=== PATIENT | female | born 1965 | race African-American/Black ===

== ENCOUNTER 2018-01-08 10:28 | Emergency (ER) | payer OTHER, MEDICAID ==
[~2018-01-08] VITALS: Ht 160 cm; Wt 89.0 kg
[2018-01-08] MEDS ORDERED: ACETAMINOPHEN 325MG TABLET PO ONE (11:00)
[2018-01-08 12:03] LABS: HEMATOCRIT. 39.9 % (36.0-48.0); HEMOGLOBIN. 13.7 g/dL (12.0-16.0); MEAN CORPUSCULAR HEMOGLOBIN 34.3 pg (28.0-32.0); MEAN PLATELET VOLUME 7.7 fl (7.4-10.4); PLATELET 259 x1000/uL (130-400); RED BLOOD CELL COUNT 3.99 mill/uL (4.2-5.4)
[2018-01-08 12:09] LABS: CHLORIDE 100 mEq/L (98-107)
[2018-01-08 12:11] LABS: PROTHROMBIN TIME 10.5 sec (9.4-11.6)
[2018-01-08 12:42] LABS: PLATELET ESTIMATE NORMAL
[2018-01-08] MEDS ORDERED: ONDANSETRON 4MG ODT PO ONE (15:45)
[2018-01-08] MEDS ORDERED: HYDROCODONE/ACETAMINOPHEN 5/325MG TABLET PO ONE (15:45)
[2018-01-08 18:36] VITALS: BP 177/90
== END 2018-01-08 18:37 | disposition home or self-care (01) ==
LOC: ER 10:44
DX: J20.9 Acute bronchitis, unspecified (principal); J06.9 Acute upper respiratory infection, unspecified; M79.604 Pain in right leg; I10 Essential (primary) hypertension; F17.210 Nicotine dependence, cigarettes, uncomplicated; Z71.6 Tobacco abuse counseling
CPT/HCPCS: 36415; 71045; 80053; 85025; 85610; 93005; 93971; 99285; Q0162

== ENCOUNTER 2018-01-16 20:55 | Emergency (ER) | payer OTHER, MEDICAID ==
[~2018-01-16] VITALS: Ht 160 cm; Wt 83.0 kg
[2018-01-17 00:46] LABS: CLARITY URINE CLEAR (CLEAR); COLOR URINE YELLOW (YELLOW); KETONES URINE TRACE (NEGATIVE); LEUKOCYTE ESTERASE URINE NEGATIVE (NEGATIVE); NITRITE URINE NEGATIVE (NEGATIVE); OCCULT BLOOD URINE NEGATIVE (NEGATIVE); PH URINE 5.5 (4.5-8.0); PROTEIN URINE NEGATIVE (NEGATIVE); SPECIFIC GRAVITY URINE 1.013 (1.005-1.030)
[2018-01-17] MEDS ORDERED: ONDANSETRON HCL 4MG/2ML VIAL IV STA (00:47)
[2018-01-17] MEDS ORDERED: SODIUM CHLORIDE 0.9% 1,000 ML IV ONE (00:47)
[2018-01-17] MEDS ORDERED: KETOROLAC 30MG/ML VIAL IV STA (00:47)
[2018-01-17 01:02] LABS: BASOPHILS % 0.5 % (0.0-2.0); EOSINOPHILS % 1.3 % (0.0-5.0); HEMATOCRIT. 38.4 % (36.0-48.0); HEMOGLOBIN. 13.2 g/dL (12.0-16.0); MEAN CORPUSCULAR HEMOGLOBIN 34.1 pg (28.0-32.0); MEAN CORPUSCULAR VOLUME 98.9 fL (81.0-99.0); MEAN PLATELET VOLUME 7.8 fl (7.4-10.4); MONOCYTES % 9.4 % (2.0-8.0); NEUTROPHILS % 27.8 % (40.0-76.0); PLATELET 306 x1000/uL (130-400); RED BLOOD CELL COUNT 3.88 mill/uL (4.2-5.4); RED CELL DISTRIBUTION WIDTH 12.5 % (11.6-14.6)
[2018-01-17 01:06] LABS: CHLORIDE 103 mEq/L (98-107)
[2018-01-17 01:09] LABS: PROTHROMBIN TIME 10.7 sec (9.4-11.6)
[2018-01-17 04:40] VITALS: BP 151/68
[2018-01-17] MEDS ORDERED: IOHEXOL-300 100 ML BOTTLE ONE (07:27)
== END 2018-01-17 06:15 | disposition home or self-care (01) ==
LOC: ER 22:04
DX: N83.201 Unspecified ovarian cyst, right side (principal); D25.9 Leiomyoma of uterus, unspecified; L98.9 Disorder of the skin and subcutaneous tissue, unspecified; R19.7 Diarrhea, unspecified; R11.2 Nausea with vomiting, unspecified
CPT/HCPCS: 36415; 74177; 76830; 76856; 80053; 81003; 81025; 83690; 85025; 85610; 96361; 96374; 96375; 99285; J1885; J2405; J7030; Q9967